=== PATIENT | female | born 1980 | race Caucasian/White ===

== ENCOUNTER 2023-05-22 09:14 | Outpatient (CLI) | payer OTHER, SELFPAY | END 2023-05-22 09:15 | disposition home or self-care (01) | PROVIDERS: PCP Physician Assistant Medical; Visit Provider Physician Assistant Medical | DX: R10.9 Unspecified abdominal pain (principal); G89.29 Other chronic pain | CPT/HCPCS: 80053; 84443 ==

== ENCOUNTER 2023-05-28 09:02 | Outpatient (CLI) | payer OTHER, SELFPAY ==
--- NOTE | 2023-05-28 09:15 | CRLHL7_ITS ---
For Patients: As a result of the Century Cures Act, medical imaging exams and procedure reports are released immediately into your electronic medical record. You may view this report before your referring provider. If you have questions, please contact your health care provider. CLINICAL HISTORY: Right upper quadrant pain FINDINGS: Liver is enlarged measuring 18.5 cm slight nodular contour to the liver this be seen with cirrhosis. There is a normal appearance of the hepatic IVC and proximal abdominal aorta. There is no evidence of ascites. The gallbladder is of normal size and there is no evidence of intraluminal stones or sludge. The gallbladder wall measures 2 mm in thickness. The common bile duct is of normal size and measures 4 mm in diameter at the level of the annita hepatis. The visualized portions of the pancreas appears normal. Echogenic foci in the right kidney could represent nonobstructing stones measuring up to 6 millimeters. No hydronephrosis. IMPRESSION: 1. Hepatomegaly. Possible slight nodular contour to the liver this could be seen with cirrhosis. 2. No acute findings in the abdomen pelvis otherwise seen. Dictated by Soniya Blackman MD @ 05/30/2023 6:31:16 PM (Electronically Signed)
== END 2023-05-28 09:03 | disposition home or self-care (01) ==
LOC: US 09:03
PROVIDERS: PCP Physician Assistant Medical; Visit Provider Physician Assistant Medical
DX: R10.11 Right upper quadrant pain (principal); R16.0 Hepatomegaly, not elsewhere classified
CPT/HCPCS: 76705

== ENCOUNTER 2024-04-29 13:33 | Outpatient (REF) | payer OTHER, SELFPAY ==
--- OUTSIDE RECORDS SUMMARY | 2024-04-29 13:37 | XMS_ITS | Referral Summary ---
Author Organization [facility] Address [address] [place] [address] Care Team Providers Care Tuber Machine Operator Helper Name Role Phone Viviana Sanders MD Primary Care Provider Allergies No known active allergies Medications Vit-Fe Sulfate-FA ( VITAMIN OR) Take 1 tablet by mouth daily. Active VITAMIN D, CHOLECALCIFEROL , PO Take 1,000 Units by mouth daily Active triamcinolone (KENALOG) 0.1 % cream Apply topically 2 times daily Rash Active oxyCODONE-aceta minophen (PERCOCET) 5-325 MG per tabletIndicatio ns: delivery delivered Take 1-2 tablets by mouth every 4 hours as needed for moderate to severe pain 30 tablet 0 5 Active Active Problems Problem Noted Date Diagnosed Date delivery delivered 08/19/2011 Immunizations Name Administration Dates Next Due MMR 11/03/2014 Social History Tobacco Use Types Packs/Day Years Used Date Smoking Tobacco: Never Alcohol Use Standard Drinks/Week Comments No 0 (1 standard drink = 0.6 oz pur e alcohol) Adolescent Education Answer Date Record ed Getting School Help Needed Not on file 06/13 Comments No Sex and Gender Information Value Date Recorded Sex Assigned at Not on file 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 Gender Identity Not on file Sexual Orientation Not on file Last Filed Vital Signs Vital Sign Reading Time Taken Comments Blood Pressure 108/75 11/05/2014 9:09 AM CDT Pulse 83 11/04/2014 4:02 PM CDT Temperature 36.6 C (97.8 F) 11/05/2014 9:09 AM CDT Respiratory Rate 16 11/05/2014 12:29 PM CDT Oxygen Saturation 98% 11/03/2014 9:00 AM CDT Inhaled Oxygen Concentration - - Weight 69.4 kg (153 lb) 11/02/2014 7:57 AM CDT Height 160 cm (5' 3) 11/02/2014 7:57 AM CDT Body Mass Index 27.1 11/02/2014 7:57 AM CDT Plan of Treatment Not on file Procedures Procedure Name Priority Date/Time Associated Diagnosis Comments HIV ANTIGEN ANTIBODY COMBO Routine 04/02/2014 from Last 3 Months or Most Recently Relevant to Health Maintenance Results * HIV Antigen Antibody Combo (04/02/2014) HIV Antigen Antibody Combo non reactive Blood specimen (specimen) us Patient Reported LAB - BLOOD ORDERABLES Final Re sult from Last 3 Months or Most Recently Relevant to Health Maintenance Insurance ([place]) [id number] [employer] Care Teams Tuber Machine Operator Helper Relationship Specialty Start Date End Date Viviana Sanders MD PCP - General Family Practice 03/26/11
--- OUTSIDE RECORDS SUMMARY | 2024-04-29 13:37 | XMS_ITS | Clinical Summary ---
Author Organization [employer] [facility] Address [place], [place] [address] Care Team Providers Care Drug Discovery Informatics Specialist Name Role Phone Viviana Sanders MD Primary Care Provider [phone] Allergies No known active allergies Medications HYDROcodone-ac etaminophen, 7.5-750 mg, (VICODIN ES) 7.5-750 mg per tablet Take 1 tablet by mouth every 6 hours if needed for . Max acetaminophen dose: 4000mg in 24 hrs. 2 Active ibuprofen (ADVIL; MOTRIN) 200 mg tablet Take 200 mg by mouth every 4 hours if needed for . 2 Active docusate (COLACE) 100 mg capsule Take 100 mg by mouth 2 times daily. 2 Active loratadine-pse udoephedrine, 10-240 mg, 24 hr (CLARITIN-D 24 HOUR) 10-240 mg per tablet Take 1 tablet by mouth once daily. 2 Active vitamin-folic acid 1 mg ( VITAMIN) tablet/capsule Take 1 tablet by mouth once daily. 2 Active oxyCODONE-acet aminophen, 5-325 mg, (PERCOCET) 5-325 mg per tablet Take 1-2 tablets by mouth every 4 hours if needed. Active ibuprofen (ADVIL; MOTRIN) 200 mg tablet Take 200-600 mg by mouth every 6 hours if needed. Active triamcinolone (ARISTOCORT) 0.5 % ointment Apply 1 Squirt topically to affected area(s) once daily if needed. to affected areas Active Social History Tobacco Use Types Packs/Day Years Used Date Smoking Tobacco: Never Assessed Comments Unknown Sex and Gender Information Value Date Recorded Sex Assigned at Not on file Legal Sex Female 8:27 AM HOUSE PARENT Gender Identity Not on file Sexual Orientation Not on file Last Filed Vital Signs Vital Sign Reading Time Taken Comments Blood Pressure 112/76 11/09/2014 12:00 PM CDT Pulse 76 11/09/2014 12:00 PM CDT Temperature 36.3 C (97.3 F) 11/09/2014 12:00 PM CDT Respiratory Rate 18 11/09/2014 12:00 PM CDT Oxygen Saturation - - Inhaled Oxygen Concentration - - Weight - - Height - - Body Mass Index - - Plan of Treatment Health Maintenance Due Date Last Done Comments Tdap 1991 Depression screening for age 12+ 1992 HIV for age 15-65 1995 BMI (ht and wt on same day) for age 18+ 1998 Hepatitis C screening for ag e 18-79 1998 Tetanus booster 2000 Pap test for age 21-65 04/27/2020 7, 04/27/2017 COVID-19 vaccine series ( - 2023-25 season) 2024 Influenza for age 9-49 01/20/2024 Pneumococcal series for age 6-64 Aged Out No longer eligible b ased on patient's age to complete this topic Procedures Procedure Name Priority Date/Time Associated Diagnosis Comments DOZER OPERATOR THIN PREP PAP SCREEN IMAGED Routine 04/27/2017 9:00 AM HOUSE PARENT from Last 3 Months or Most Recently Relevant to Health Maintenance Results * DOZER OPERATOR THIN PREP PAP SCREEN IMAGED (04/27/2017 9:00 AM HOUSE PARENT) Case Report Gynecologic Cytology Report Case: [id number] Authorizing Provider: Yadira Randall NP Collected: 04/27/2017 0900 First Screen: Shun Morgan Received: 04/30/2017 1308 Rescreen: Beau Mcgarry Specimen: DOZER OPERATOR ThinPrep Vial Screening, Cervical/Vaginal 05/11/2017 12:12 PM HOUSE PARENT [employer] [facility] ENTRAL LABORATORY INTERPRETATION/ RESULT NEGATIVE FOR INTRAEPITHELIAL LESION OR MALIGNANCY (NIL) (none) 05/11/2017 12:12 PM HOUSE PARENT [facility] [employer] LABORAT[facility] ENTRAL LABORATORY IMEN ADEQUACY Satisfactory for evaluation Endocervical component present 05/11/2017 12:12 PM [facility] HPV REQUEST HPV and PAP 05/11/2017 12:12 PM [facility] Date of LMP 03/11/2017 05/11/2017 12:12 PM [facility] Last Pap Date 10/11/2012 05/11/2017 12:12 PM [facility] Last Pap Result ASCUS 7 12:12 PM [facility] Comment:-HPV Automated Review Successful 05/11/2017 12:12 PM [facility] Comment:Specimen processed s uccessfully by automated assembler wire mesh gate device, [employer] Imaging System, [employer] ANCILLARY TESTING DOZER OPERATOR HPV Ordered, Please see separate report 05/11/2017 12:12 PM [facility] Note The pap test is a screening technique, not a diagnostic procedure. It is used primarily to screen for squamous cancers and precursor lesions. Published studies have shown that it is subject to both false negative and false positive results. The pap test should not be used as the sole means to diagnose or exclude pre-malignant and malignant lesions. Interpreted at [facility] ([facility], [facility], [facility], [facility], [facility], [facility], [facility]) 05/11/2017 12:12 PM [facility] Other (Cervical/Vagina l) 04/27/2017 9:00 AM HOUSE PARENT 04/30/2017 1:08 PM HOUSE PARENT us Yadira Randall NP PATHOLOGY/CYTOLOGY Final Re sult [facility] [address] [place] [address], [place] from Last 3 Months or Most Recently Relevant to Health Maintenance Insurance [employer] Care Teams Drug Discovery Informatics Specialist Relationship Specialty Start Date End Date Viviana Sanders MD PCP - General 11/05/14
--- OUTSIDE RECORDS SUMMARY | 2024-04-29 13:37 | XMS_ITS | Clinical Summary ---
Author Organization [facility] Address [address] [place] [address] Care Team Providers Care Processing Archivist Name Role Phone Vivaina Sanders MD Primary Care Provider Allergies No [...] Name Administration Dates Next Due MMR 11/03/2014 Family History Medical History Relation Comments Diabetes Father High cholesterol Father Hypertension Father Diabetes Paternal Grandfather Hypertension Paternal Grandfather Relation Status Comments Father Paternal Grandfather Social History Tobacco Use Types Packs/Day Years Used Date Smoking Tobacco: Never Alcohol Use Standard Drinks/Week Comments No 0 (1 standard drink = 0.6 oz pur e alcohol) Adolescent Education Answer Date Record ed Getting School Help Needed Not on file 06/13 Comments No Sex and Gender Information Value Date Recorded Sex Assigned at Not on file 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 Gender Identity Not on file Sexual Orientation [...] 11/02/2014 7:57 AM CDT Plan of Treatment Health Maintenance Due Date Last Done Comments ADVANCE CARE PLANNING 1980 ANNUAL REVIEW OF HM ORDERS 1980 GLUCOSE 1980 MAMMO SCREENING 1980 YEARLY PREVENTIVE VISIT 1980 HEPATITIS C SCREENING 1998 HEPATITIS B IMMUNIZATION (1 of 3 - 19+ 3-dose series) 1999 PAP 04/27/2020 04/27/2017, 04/27/2017 LIPID 2020 PHQ-2 (once per calendar year) 2023 COVID-19 Vaccine ( season) 2024 05/28/2023, 03/25/2021, 08/25/2020, Additional history exists INFLUENZA VACCINE (#1) 2024 , 02/28/2022, 03/23/2020, Additional history exists DTAP/TDAP/TD IMMUNIZATION (2 - Td or Tdap) 08/18/2024 08/18/2014 RSV VACCINE (1 - 1-dose 75+ series) 2055 HIV SCREENING Completed 04/02/2014, 01/06/2011 HPV IMMUNIZATION Aged Out No longer e ligible based on patient's age to complete this topic MENINGITIS IMMUNIZATION Aged Out No l onger eligible based on patient's age to complete this topic Pneumococcal Vaccine: Pediatrics (0 to 5 Years) and At-Risk Patients (6 to 64 Years) Aged Out No longer eligible based on patient's age to complete this topic RSV MONOCLONAL ANTIBODY Aged Out No l onger eligible based on patient's age to complete this topic [...] Most Recently Relevant to Health Maintenance Insurance [facility] [employer] Care Teams Processing Archivist Relationship Specialty Start Date End Date Viviana Sanders MD PCP - General Family Practice 03/26/11
[2024-04-29 21:55] LABS: Free T4 Free Thyroxine* 1.05 ng/dL (0.70-1.85)
[2024-05-01 14:57] LABS: Estradiol Premenol Female 84 pg/mL
[2024-05-01 15:21] LABS: Prolactin 68.6 ng/mL (2.8-29.2)
[2024-05-02 15:17] LABS: Follicle Stimulating Hormone 44.9 IU/L
== END 2024-04-29 13:34 | disposition home or self-care (01) ==
LOC: NPINS 13:33
PROVIDERS: PCP Physician Assistant Medical; Visit Provider Nurse Practitioner Obstetrics & Gynecology
DX: N95.1 Menopausal and female climacteric states (principal)
CPT/HCPCS: 82670; 83001; 84146; 84439; 84443

== ENCOUNTER 2024-05-08 14:04 | Outpatient (CLI) | payer OTHER, SELFPAY | END 2024-05-08 14:05 | disposition home or self-care (01) | LOC: NPINS 08-21 14:20 | PROVIDERS: PCP Physician Assistant Medical; Visit Provider Nurse Practitioner Obstetrics & Gynecology | DX: E22.1 Hyperprolactinemia (principal) | CPT/HCPCS: 84146 ==

== ENCOUNTER 2024-09-08 07:54 | Outpatient (CLI) | payer OTHER, SELFPAY ==
[2024-09-08 15:34] LABS: Albumin* 4.5 g/dL (3.3-5.0); Chloride* 102 mmol/L (96-114); Sodium* 136 mmol/L (135-149)
[2024-09-08 15:35] LABS: Potassium* 4.8 mmol/L (3.6-5.1)
[2024-09-08 15:37] LABS: Alanine Aminotransferase* 16 U/L (4-35); Anion Gap 7 mEq/L (7-15); Aspartate Amino Transferase* 27 U/L (12-35); Bilirubin Total* 0.7 mg/dL (0.1-1.5); Blood Urea Nitrogen* 15 mg/dL (5-24); Carbon Dioxide* 27 mmol/L (20-32); Creatinine* 0.8 mg/dL (0.5-1.5); Estimated Glomerular Filt Rate 93 ml/min; Total Protein* 7.2 g/dL (6.0-8.3)
[2024-09-08 15:38] LABS: Alkaline Phosphatase* 67 U/L (40-150); Calcium* 9.8 mg/dL (8.4-10.6); Glucose* 100 mg/dL (60-115)
== END 2024-09-08 07:55 | disposition home or self-care (01) ==
LOC: NPINS 07:55
PROVIDERS: Visit Provider Nurse Practitioner Obstetrics & Gynecology
DX: R63.5 Abnormal weight gain (principal)
CPT/HCPCS: 80053